=== PATIENT | male | born 1985 | race Caucasian/White ===

== ENCOUNTER 2016-05-16 07:34 | Emergency (ER) | payer BC ==
[~2016-05-16] VITALS: Ht 182.9 cm; Wt 72.6 kg
[~2016-05-16 07:34] MED LIST: KEPPRA1000 MG ORAL; LORazepam Inj 2mg/ml 1ml IV ONE
[2016-05-16 07:40] VITALS: BP 105/44
--- NOTE | 2016-05-16 07:40 | Emergency Room Report ---
History of Present Illness General Chief Complaint: Seizure Source: Patient, EMS Present Illness HPI Patient presents with a seizure witnessed by his sister. He has traveled from [place] here. He's had a fever for the last 2 days. Denies any cough or dysuria no vomiting or diarrhea. He took 2 Tylenol this morning. In the past he has had seizures with fevers. The patient has a history of seizure disorder. He is on Keppra 1500 mg twice a day. The last seizure was 4 months ago. According to his mother when he has fevers he is at risk for having seizures. He had intracerebral hemorrhage in the past and as the source of his seizures. He denies any headache at this time. He did bite his tongue during the seizure. He still because he was taking at home and a. EMS transport of the patient and his Accu-Chek was 100 in the field. The patient states he is compliant with his medications. Post ictal and somewhat variable ROS. Denies pain. Bit tongue. No skeletal pain. Allergies: Coded Allergies: No Known Allergies (Unverified , 05/16/16) Patient History Limited by: medical condition Past Medical History: see triage record Past Surgical History: other - intracerebral hemorrhage Social History: Denies: alcohol use, drug use, smoking Social History Narrative from [place] Reviewed Nursing Documentation: PMH: Agreed, PSxH: Agreed Nursing Documentation-PM Past Medical History: No History, Except For Hx Neurological Problems: Yes - ICH Hx Seizures: Yes Review of Systems All Other Systems: limited Physical Exam Vital Signs Date Time Temp Pulse Resp B/P Pulse Ox O2 Delivery O2 Flow Rate FiO2 05/16/16 07:27 101.5 125 20 119/70 99 Room Air Sp02 EP Interpretation: reviewed, normal General Appearance: well appearing, no apparent distress, Postictal Head: normocephalic, atraumatic Eyes: bilateral eye PERRL, bilateral eye normal inspection ENT: moist mucus membranes - macerations L tongue, no bleeding or lacs Neck: supple, no meningismus Respiratory: lungs clear, normal breath sounds Cardiovascular #1: regular rate, rhythm Cardiovascular #2: 2+ radial (R) Gastrointestinal: normal inspection, normal bowel sounds, non tender, no mass, non-distended Musculoskeletal: back normal, gait/station normal, normal range of motion Neurologic: alert, motor strength/tone normal, DTRs symmetric, sensory intact, speech normal, oriented - X2 Psychiatric: mood/affect normal - post-ictal Skin: normal inspection, warm/dry Medical Decision Making Diagnostic Impression: Primary Impression: Seizure Additional Impression: Influenza A ER Course Patient presents with a seizure. Is apparently compliant with his medication. He has a fever and we need to ascertain what this might be coming from. He denies any symptomatology and there is no evidence of meningitis at this time. Labs will be obtained and also a chest x-ray and EKG. In addition to that the patient be treated with Motrin and also Ativan. Observed on a monitor and storage bin tender. Labs unremarkable. Patient completely OX3 with non-focal neurologic exam. Treated for influenza A. Discussed with PMD in [place] ([place]). Temporary treatment with Klonopin. Patient stable for outpatient observation and treatment. Laboratory Tests Test 05/16/16 07:40 05/16/16 08:11 White Blood Count 7.2 K/UL (4.8-10.8) Red Blood Count 5.25 M/UL (4.70-6.10) Hemoglobin 15.2 G/DL (14.2-18.0) Hematocrit 45.3 % (42.0-52.0) Mean Corpuscular Volume 86 FL (80-99) Mean Corpuscular Hemoglobin 28.9 PG (27.0-31.0) Mean Corpuscular Hemoglobin Concent 33.5 G/DL (32.0-36.0) Red Cell Distribution Width 11.1 % (11.6-14.8) L Platelet Count 158 K/UL (150-450) Mean Platelet Volume 8.9 FL (6.5-10.1) Neutrophils (%) (Auto) 79.9 % (45.0-75.0) H Lymphocytes (%) (Auto) 11.2 % (20.0-45.0) L Monocytes (%) (Auto) 7.6 % (1.0-10.0) Eosinophils (%) (Auto) 0.3 % (0.0-3.0) Basophils (%) (Auto) 1.0 % (0.0-2.0) Sodium Level 140 mEQ/L (135-145) Potassium Level 3.8 mEQ/L (3.4-4.9) Chloride Level 98 mEQ/L (98-107) Carbon Dioxide Level 18 mEQ/L (20-30) L Anion Gap 24 (5-15) H Blood Urea Nitrogen 13 mg/dL (7-23) Creatinine 1.1 mg/dL (0.7-1.2) Estimate Glomerular Filtration Rate > 60 mL/min (>60) Glucose Level 140 mg/dL (74-106) H Calcium Level 8.7 mg/dL (8.6-10.2) Total Bilirubin 0.4 mg/dL (0.0-1.2) Aspartate Amino Transferase (AST) 21 U/L (5-40) Alanine Aminotransferase (ALT) 22 U/L (3-41) Alkaline Phosphatase 80 U/L (40-129) Total Creatine Kinase 107 U/L (38-174) Total Protein 6.9 g/dL (6.6-8.7) Albumin 4.5 g/dL (3.5-5.2) Globulin 2.4 g/dL Albumin/Globulin Ratio 1.8 (1.0-2.7) Acetaminophen Level < 10 ug/mL (10-30) L Serum Alcohol < 10 mg/dL Urine Color Yellow Urine Appearance Clear Urine pH 5 (4.5-8.0) Urine Specific Palmer 1.020 (1.005-1.035) Urine Protein 2+ (NEGATIVE) H Urine Glucose (UA) Negative (NEGATIVE) Urine Ketones 3+ (NEGATIVE) H Urine Occult Blood 1+ (NEGATIVE) H Urine Nitrite Negative (NEGATIVE) Urine Bilirubin Negative (NEGATIVE) Urine Urobilinogen Normal MG/DL (0.0-1.0) Urine Leukocyte Esterase Negative (NEGATIVE) Urine RBC 0-2 /HPF (0 - 0) H Urine WBC 0-2 /HPF (0 - 0) Urine Squamous Epithelial Cells Occasional /LPF Urine Bacteria Few /HPF (NONE) Urine Mucus Few /LPF (NONE/OCC) H Urine Opiates Screen Negative (NEGATIVE) Urine Barbiturates Screen Negative (NEGATIVE) Phencyclidine (PCP) Screen Negative (NEGATIVE) Urine Amphetamines Screen Negative (NEGATIVE) Urine Benzodiazepines Screen Negative (NEGATIVE) Urine Cocaine Screen Negative (NEGATIVE) Urine Marijuana (THC) Screen Negative (NEGATIVE) Microbiology Date/Time Source Procedure Growth Status 05/16/16 07:55 Nasal Nares Influenza Types A,B Antigen ([facility]OLAND) - Final Complete EKG Diagnostic Results Rate: tachycardiac ST Segments: no acute changes Rhythm Strip Diag. Results EP Interpretation: yes Rhythm: no PVC's, no ectopy, other - ST Chest X-Ray Diagnostic Results EP Interpretation: Yes Findings: no consolidation, no effusion, no pneumothorax, no acute cardiopulmonary disease Number of Views: 1 Last Vital Signs Date Time Temp Pulse Resp B/P Pulse Ox O2 Delivery O2 Flow Rate FiO2 05/16/16 12:05 97.8 76 16 110/55 99 Room Air Status: improved Disposition: HOME, SELF-CARE Condition: Improved Scripts Ibuprofen* (MOTRIN*) 600 Mg Tablet 600 MG ORAL Q6H Y for For Pain, #16 TAB Prov: Aleksander Renteria M.D. 05/16/16 Oseltamivir Phosphate (Tamiflu) 75 Mg Capsule 75 MG ORAL TWICE A DAY, #10 CAP Prov: Aleksander Renteria M.D. 05/16/16 Clonazepam* (KLONOPIN*) 1 Mg Tablet 1 MG ORAL BID, #12 TAB 0 Refills Prov: Aleksander Renteria M.D. 05/16/16 Aleksander Renteria M.D. May 16, 2016 07:40
[2016-05-16 07:57] LABS: EOSINOPHILS % (AUTO) 0.3 % (0.0-3.0); LYMPHOCYTES % (AUTO) 11.2 % (20.0-45.0); MEAN CORPUSCULAR HEMOGLOBIN 28.9 PG (27.0-31.0); MEAN CORPUSCULAR HGB CONC 33.5 G/DL (32.0-36.0); MEAN CORPUSCULAR VOLUME 86 FL (80-99); MEAN PLATELET VOLUME 8.9 FL (6.5-10.1); MONOCYTES % (AUTO) 7.6 % (1.0-10.0); NEUTROPHILS % (AUTO) 79.9 % (45.0-75.0); PLATELET COUNT 158 K/UL (150-450); RED BLOOD COUNT 5.25 M/UL (4.70-6.10); RED CELL DISTRIBUTION WIDTH 11.1 % (11.6-14.8); WHITE BLOOD COUNT 7.2 K/UL (4.8-10.8)
[2016-05-16 08:12] LABS: ACETAMINOPHEN < 10 ug/mL (10-30); ALANINE AMINOTRANSFERASE 22 U/L (3-41); ALBUMIN/GLOBULIN RATIO 1.8 (1.0-2.7); ALCOHOL < 10 mg/dL; ANION GAP 24 (5-15); ASPARTATE AMINO TRANSFERASE 21 U/L (5-40); CALCIUM 8.7 mg/dL (8.6-10.2); CARBON DIOXIDE 18 mEQ/L (20-30); CHLORIDE 98 mEQ/L (98-107); CREATININE 1.1 mg/dL (0.7-1.2); GLOMERULAR FILTRATION RATE > 60 mL/min (>60); HEMOLYSIS 7; POTASSIUM 3.8 mEQ/L (3.4-4.9); SODIUM 140 mEQ/L (135-145); TOTAL PROTEIN 6.9 g/dL (6.6-8.7)
[2016-05-16] MEDS ORDERED: Oseltamivir 75mg cap ORAL STA (08:52)
[2016-05-16 08:55] LABS: APPEARANCE,URINE CLEAR; KETONES,URINE 3+ (NEGATIVE); LEUKOCYTE ESTERASE ,URINE NEGATIVE (NEGATIVE); NITRITE,URINE NEGATIVE (NEGATIVE); PH,URINE 5 (4.5-8.0); PROTEIN,URINE 2+ (NEGATIVE); UROBILINOGEN,URINE NORMAL MG/DL (0.0-1.0)
[2016-05-16 09:19] LABS: RBC,URINE 0-2 /HPF (0 - 0); WBC,URINE 0-2 /HPF (0 - 0)
[2016-05-16 09:20] LABS: MUCUS,URINE FEW /LPF (NONE/OCC)
[2016-05-16 09:45] VITALS: BP 100/47
[2016-05-16 09:58] LABS: BACTERIA,URINE FEW /HPF; SQUAMOUS EPITHELIAL CELL,UR OCCASIONAL /LPF (NONE/OCC)
[2016-05-16] MEDS ORDERED: KLONOPIN1 MG ORAL (11:44)
[2016-05-16] MEDS ORDERED: TAMIFLU75 MG ORAL (11:44)
[2016-05-16] MEDS ORDERED: IBUPROFEN600 MG ORAL (11:44)
[2016-05-16 12:00] VITALS: BP 110/55
[2016-05-16 12:05] VITALS: BP 110/55
--- NOTE | 2016-05-18 08:44 | Diagnostic Imaging Report ---
Indication: Chest pain Technique: One view of the chest Comparison: none Findings: Lungs and pleural spaces are clear. Heart size is normal. Impression: No acute process
--- NOTE | 2016-05-18 15:17 | Cardiology Report ---
APPROVED REPORT EKG Measurement Heart [id number] Sinus tachycardia RSR' or QR pattern in V1 suggests right ventricular conduction delay Nonspecific T wave abnormality Abnormal ECG
== END 2016-05-16 12:05 | disposition home or self-care (01) ==
LOC: EDBD 07:34 → EMR 07:59
DX: G40.909 Epilepsy, unspecified, not intractable, without status epilepticus (principal); J10.1 Influenza due to other identified influenza virus with other respiratory manifestations
CPT/HCPCS: 36415; 71010; 80053; 80300; 81003; 82550; 85025; 86710; 93005; 96360; 96374; 99284; G0480; 80329